=== PATIENT | male | born 1985 | race Two or more races ===

== ENCOUNTER 2021-02-20 23:56 | Emergency (ER) | payer SELFPAY ==
[~2021-02-20] VITALS: Ht 188 cm; Wt 89.8 kg
[2021-02-21 00:16] VITALS: BP 121/81
== END 2021-02-21 00:28 ==
LOC: EEVIPCON 02-21 → ER 02-21
DX: S00.81XA Abrasion of other part of head, initial encounter (principal); M25.511 Pain in right shoulder; X58.XXXA Exposure to other specified factors, initial encounter; Y93.89 Activity, other specified; Y92.89 Other specified places as the place of occurrence of the external cause; Y99.8 Other external cause status